=== PATIENT | male | born 1985 | race Hispanic/Latino ===

== ENCOUNTER 2025-01-08 13:36 | Emergency (ER) | payer SELFPAY ==
[~2025-01-08] VITALS: Ht 167.6 cm; Wt 102.1 kg
[2025-01-08] MEDS: FLUORESCEIN SODIUM 1 STRIP STRIP OP SCH (14:00)
[2025-01-08] MEDS: TETRACAINE HCL 0.5% 4 ML OPHTH SOLN ONE (14:03)
[2025-01-08] MEDS: FLUORESCEIN SODIUM 1 STRIP STRIP ONE (14:03)
[2025-01-08] MEDS ORDERED: POLYOS OP (14:42)
[2025-01-08] MEDS ORDERED: KETO-108 OP (14:42)
--- NOTE | 2025-01-08 14:44 | ERN ---
General Chief Complaint: Eye Problems Stated Complaint: LEFT EYE PAIN Time Seen by MD: 13:37 History of Present Illness Initial Comments Otherwise healthy 39-year-old male who presents for left eye injury. Yesterday he accidentally hit the eye with a pole. He reports that he closed his eyelid and he was hit in the outside of the eye. Today he feels swelling to the side of the face and he feels a sensation of a foreign body in his left eye. He does not wear contacts. Allergies: Coded Allergies: No Known Drug Allergies (Unverified Allergy, Unknown, 01/08/25) Past Medical History Past Medical History: No Pertinent History Past Surgical History: Other Surgical History Other: BACK SURGERY ROS Dictation CONSTITUTIONAL: No chills, no fever, no weakness, no diaphoresis, no malaise. HEAD/FACE: No signs of trauma. EENT: Left eye pain RESPIRATORY: No cough, no orthopnea, no SOB, no stridor, no wheezing. CARDIOVASCULAR: No chest pain, no edema, no palpitations, no syncope. GASTROINTESTINAL/ABDOMINAL: No abdominal pain, no constipation, no diarrhea, no nausea, no vomiting. GENITOURINARY: No abnormal discharge, no dysuria, no frequent urination, no hematuria. No complaints of pain in the genitals. MUSCULOSKELETAL: No back pain, no gout, no joint pain, no joint swelling, no muscle pain, no muscle stiffness, no neck pain. INTEGUMENTARY: No change in color, no change in hair/nails, no dryness, no lesion, no lumps, no rash. NEUROLOGICAL/PSYCH: No anxiety, not depressed, no emotional problem, no headache, no numbness, no pre-existing deficit, no history of seizures, no tremors, no weakness. HEMATOLOGIC/LYMPHATIC: Not anemic, no history of blood clots, no apparent bleeding, no bruising, glands not swollen. All Systems Negative, Except as Noted. Physical Exam Physical Exam Dictation VITAL SIGNS: Reviewed. GENERAL APPEARANCE: Alert, oriented x3, no acute distress, obese. HEAD AND FACE: Non-traumatic. EARS: Pinnas intact and no signs of trauma or erythema. Ear canals clear and no discharge. TMs no erythema. NOSE: No discharge, no bleeding. OROPHARYNX: Mouth normal, teeth no caries, tongue pink. Pharynx clear, no erythema. Tonsils no exudates, no abscesses noted. Mucous membrane moist. NECK: Supple, non-tender, no thyromegaly, no masses, no JVD, no bruits. BREAST: Deferred. CHEST: No tenderness, no crepitus, no paradoxical movement, no retractions. LUNGS: Clear, well-ventilated, symmetric, no rales, no wheezing, no rhonchi, no stridor, good breath sounds bilaterally. HEART: Regular rate, regular rhythm, no murmur, no gallops. VASCULAR: No peripheral edema. ABDOMEN: Soft, positive bowel sounds, nondistended, no guarding, nontender, no rebound, no masses no hepatomegaly, no splenomegaly, no Newton's sign, no hernias. RECTAL: Deferred. GENITAL: Deferred. NEUROLOGICAL: Normal speech, gross motor function intact, gross sensory function intact. MUSCULOSKELETAL: Neck nontender, full range of motion, back nontender, full range of motion. EXTREMITIES: Nontender, full range of motion. SKIN: Color pink, dry, no turgor, no rash, no lacerations, no abrasions, no contusions. LYMPHATICS: Deferred. MDM CC: Banged to the eye, left eye pain meals started Historian: Patient No comorbidities No limitations Differential diagnosis: Corneal abrasion versus other versus foreign body Vitals are stable CRUZ, EOMI. He was have some corneal injection. On staining exam patient has a very minimal corneal abrasion in the center of the eye without Suleman sign no foreign bodies We will DC with eye drops recommend follow up ED Course Orders Procedure Category Date Status Time Fluorescein Sodium PHA 01/08/25 Complete (Tyaxb-O-Iltsy At) 13:48 Tetracaine Hcl PHA 01/08/25 Complete (Pontocaine 0.5% 13:49 Fluorescein Sodium PHA 01/08/25 In Process (Dhczf-R-Cxxoe At) 14:00 Current Medications Medications (Trade) Dose Ordered Sig/Leonardo Route PRN Reason Start Time Stop Time Status Last Admin Dose Admin Fluorescein Sodium (Xdymq-J-Bhqta At) 1 strip ONCE OP 01/08/25 14:00 02/07/25 13:59 Fluorescein Sodium (Nfpda-S-Mqrsg At) 1 strip STK-MED ONCE .ROUTE 01/08/25 13:48 01/08/25 13:49 DC 01/08/25 14:03 Tetracaine HCl (Pontocaine 0.5% Ophth Soln) 20 drop STK-MED ONCE .ROUTE 01/08/25 13:49 01/08/25 13:49 DC 01/08/25 14:03 Vital Signs Date Time Temp Pulse Resp B/P (MAP) Pulse Ox O2 Delivery O2 Flow Rate FiO2 01/08/25 13:37 98.2 83 18 169/92 98 Room Air DX & DISP Disposition: Discharge Departure Impression: Primary Impression: Corneal abrasion Condition: Stable Scripts Polymyxin B Sulfate/Tmp (Polytrim Ophth Soln) 10,000 Unit-1 Mg/Ml Opsol 1 DROP OP TID for 7 Days, #10 ML 0 Refills Prov: JESSICA CHRISTIE DO 01/08/25 Ketorolac Tromethamine (Ketorolac Tromethamine) 0.5 % Drops 1 DROP OP QID for pain, #5 ML 0 Refills Prov: JESSICA CHRISTIE DO 01/08/25 Additional Instructions: There are no foreign bodies in your eye on clinical exam. It appears to be a very small corneal abrasion and swelling. This can be painful but usually heals on its own. I have prescribed Polytrim eyedrops. Use one drop in the affected eye every 6 hours. I have prescribed ketorolac eye drops. Apply one drop in the affected eye every 6 hours as needed for pain. You can take owmx-oam-sslcztn ibuprofen (800 mg) or Tylenol (1000 mg) as needed for pain. Do not rub your eye. Do not wear contact lenses. Wear sunglasses as needed. As we discussed, usually symptoms improve in the next 24-48 hours. I recommend you schedule an appointment with the an eye doctor within 48 hours. This will make sure that he abrasion in his healing properly. Please return to the emergency department if you have any concerns. Referrals: SELF,REFERRAL (PCP) JESSICA CHRISTIE DO Jan 08, 2025 14:44
[2025-01-08 14:47] VITALS: BP 161/87; PULSE 80; RESP 18; TEMP 98.2; O2SAT 98
== END 2025-01-08 14:55 | disposition home or self-care (01) ==
LOC: EDH 13:36
DX: S05.00XA Injury of conjunctiva and corneal abrasion without foreign body, unspecified eye, initial encounter (principal); W22.09XA Striking against other stationary object, initial encounter; Y93.89 Activity, other specified; Y92.89 Other specified places as the place of occurrence of the external cause; Y99.8 Other external cause status
CPT/HCPCS: 99283

== ENCOUNTER 2025-04-19 14:02 | Emergency (ER) | payer SELFPAY ==
[~2025-04-19] VITALS: Ht 170.2 cm; Wt 104.3 kg
[~2025-04-19 14:02] MED LIST: KETO-108 OP; POLYOS OP
--- NOTE | 2025-04-19 14:11 | ERN ---
ED Note History of Present Illness Stated Complaint: SORE THROAT/ EAR PAIN Chief Complaint: Sore Throat Time Seen by MD: 14:04 Dictation: IS A 39-YEAR-OLD MALE COMING IN TODAY WITH COMPLAINTS OF SORE THROAT WITH PAINFUL SWALLOWING HE HAS HAD FOR SEVERAL DAYS. HE ALSO STATES WHEN HE CHEWS IT HURTS TO HIS LEFT EAR. NO FEVER NO CHILLS NO NAUSEA VOMITING. ADDITIONALLY PATIENT IS NOTED TO BE HYPERTENSIVE IN THE TRIAGE WITH BLOOD PRESSURE 199/103. HE STATES HE WAS SEEN BY A DOCTOR IN [place] SEVERAL DAYS AGO AND WE WILL PRESCRI BED AMOXICILLIN AFTER BEING DIAGNOSED WITH A CYST HE SAID THE PAIN HAS NOT GOTTEN ANY BETTER AND HE IS HERE FOR FURTHER EVALUATION AND TREATMENT. VOICE IS CLEAR Allergies: Coded Allergies: No Known Drug Allergies (Unverified Allergy, Unknown, 01/08/25) Home Meds Active Scripts Polymyxin B Sulfate/Tmp (Polytrim Ophth Soln) 10,000 Unit-1 Mg/Ml Opsol, 1 DROP OP TID for 7 Days, #10 ML 0 Refills Prov:JESSICA CHRISTIE DO 01/08/25 Ketorolac Tromethamine (Ketorolac Tromethamine) 0.5 % Drops, 1 DROP OP QID for pain, #5 ML 0 Refills Prov:JESSICA CHRISTIE DO 01/08/25 Past Medical History Past Medical History: No Pertinent History Surgical History: Other Surgical History Other: BACK SURGERY Social History: Smokers RN Note Reviewed/Agreed w/PFSH: Yes Review of System Dictation CONSTITUTIONAL: NEGATIVE EXCEPT FOR HPI HEAD/FACE: NEGATIVE EXCEPT FOR HPI EENT: NEGATIVE EXCEPT FOR HPI SORE THROAT WITH LEFT EAR PAIN CHEWING RESPIRATORY: NEGATIVE EXCEPT FOR HPI GASTROINTESTINAL/ABDOMINAL: NEGATIVE EXCEPT FOR HPI GENITOURINARY: NEGATIVE EXCEPT FOR HPI MUSCULOSKELETAL: NEGATIVE EXCEPT FOR HPI INTEGUMENTARY: NEGATIVE EXCEPT FOR HPI NEUROLOGICAL/PSYCH: NEGATIVE EXCEPT FOR HPI HEMATOLOGIC/LYMPHATIC: NEGATIVE EXCEPT FOR HPI ALL SYSTEMS NEGATIVE, EXCEPT NOTED ABOVE. 13 POINT REVIEW OF SYSTEMS ASSESSED AND ALL NEGATIVE EXCEPT FOR ABOVE. Initial Vital Sign VS Vital Signs Date Time Temp Pulse Resp B/P (MAP) Pulse Ox O2 Delivery O2 Flow Rate FiO2 04/19/25 14:05 98.2 111 20 199/103 99 Room Air 0 04/19/25 14:10 21 Physical Exam Dictation VITAL SIGNS REVIEWED GENERAL APPEARANCE: ALERT, ORIENTED X 3, MILD ACUTE DISTRESS, WELL DEVELOPED, NOURISHED. MORBID OBESITY HEAD AND FACE: NON-TRAUMATIC. EYES: PERRL, PINK CONJUNCTIVAS, EYELID NO TRAUMA, ANTERIOR CHAMBER WITH ARCUS SENILIS. EARS: PINNAS INTACT AND NO SIGNS OF TRAUMA OR NO MASTOID TENDERNESS BILATERALLY. UNABLE TO VISUALIZE LEFT TM DUE TO CERUMEN IMPACTIONS NOSE: NO DISCHARGE, NO BLEEDING. OROPHARYNX: MOUTH NORMAL, TONSILS 2/4 BILATERALLY AND CRYPTIC., NO ABSCESSES NOTED, MUCOUS MEMBRANE MOIST UVULA MIDLINE AND VOICE IS CLEAR NECK: SUPPLE, NON-TENDER, NO THYROMEGALY, NO MASSES, NO JVD, NO BRUITS BREAST:DEFERRED CHEST:NO TENDERNESS, NO CREPITUS, NO PARADOXICAL MOVEMENT, NO RETRACTIONS LUNGS:CLEAR, WELL-VENTILATED, SYMMETRIC, NO RALES, NO WHEEZING, NO RHONCHI, NO STRIDOR, GOOD BREATH SOUNDS BILATERALLY HEART: REGULAR RATE, REGULAR RHYTHM, NO MURMUR, NO GALLOPS VASCULAR: NO PERIPHERAL EDEMA, ABDOMEN: SOFT, POSITIVE BOWEL SOUNDS, NONDISTENDED, NO GUARDING, NONTENDER, NO REBOUND, NO MASSES NO HEPATOMEGALY, NO SPLENOMEGALY, NO BERRIOS'S SIGN, NO HERNIAS. RECTAL: DEFERRED GENITAL: DEFERRED NEUROLOGICAL: NORMAL SPEECH, MOTOR FUNCTION INTACT, SENSORY FUNCTION INTACT MUSCULOSKELETAL: NECK NONTENDER, FULL RANGE OF MOTION, BACK NONTENDER, FULL RANGE OF MOTION, EXTREMITIES: NONTENDER, FULL RANGE OF MOTION SKIN: COLOR PINK, DRY, NO TURGOR, NO RASH, NO LACERATIONS, NO ABRASIONS, NO CONTUSIONS. LYMPHATIC: DEFERRED Results (Laboratory/Radiology) Laboratory/Radiology Laboratory Tests Test 04/19/25 14:08 Group A Streptococcus Rapid positive (NEGATIVE) *A Labs Reviewed?: Yes ED Course ED Course Orders Procedure Category Date Status Time Rapid (Group A Strep) LAB 04/19/25 Complete 14:07 Clonidine Hcl 0.2 Mg PHA 04/19/25 Complete Tablet (Catapres 0. 14:30 Dexamethasone 4mg/Ml PHA 04/19/25 Complete 1ml Vial (Dexametha 14:30 Acetaminophen 500mg PHA 04/19/25 Complete Tab (Tylenol 500mg T 15:00 Current Medications Medications (Trade) Dose Ordered Sig/Leonardo Route PRN Reason Start Time Stop Time Status Last Admin Dose Admin Acetaminophen (TYLenol 500MG TAB) 1,000 mg ONCE ONCE PO 04/19/25 15:00 04/19/25 15:01 DC 04/19/25 14:57 Clonidine HCl (CATApres 0.2 MG TAB) 0.2 mg ONCE ONCE PO 04/19/25 14:30 04/19/25 14:31 DC 04/19/25 14:17 Dexamethasone Sodium Phosphate (dexaMETHasone 4MG/ML 1ML VIAL) 8 mg ONCE ONCE IM 04/19/25 14:30 04/19/25 14:31 DC 04/19/25 14:57 Vital Signs Date Time Temp Pulse Resp B/P (MAP) Pulse Ox O2 Delivery O2 Flow Rate FiO2 04/19/25 15:10 98.2 97 18 145/91 98 Room Air* 0 21 04/19/25 14:17 111 199/103 04/19/25 14:10 98.2 111 20 199/103 99 Room Air* 0 21 04/19/25 14:05 98.2 111 20 199/103 99 Room Air 0 1515/REPEAT BLOOD PRESSURE AFTER CLONIDINE 145/91. PATIENT WILL BE DISCHARGED HOME WITH CLONIDINE 0.2 B.I.D. PRESCRIBED AUGMENTIN 875 B.I.D. FOR 10 DAYS GIVEN A LIST OF PRIMARY CARE DOCTORS FOR FOLLOW UP STRONGLY RECOMMENDED HIM TO SEE A DOCTOR FOR HIS BLOOD PRESSURE CONTROL OR RISK ACUTE MYOCARDIAL INFARCTION OR STROKE Medical Decision Making MDM MEDICAL DECISION-MAKING BASED ON HPI AND STREP SWAB STREP SWAB WAS POSITIVE PATIENT ALSO NOTED TO HAVE HYPERTENSION AND WAS TREATED WITH CLONIDINE REPEAT BLOOD PRESSURE MARKEDLY IMPROVED PATIENT DISCHARGED HOME WITH A LIST OF DOCTORS DX & DISP Disposition: Discharge Departure Impression: Primary Impression: Acute streptococcal tonsillitis Additional Impressions: Uncontrolled hypertension, Obesity Condition: Stable Scripts Amoxicillin/Potassium Clav (Amox Tr-K Clv 875-125 mg Tab) 875 Mg-125 Mg Tablet 1 EACH PO BID for 10 Days, #20 TAB 0 Refills Prov: ERNIE LOERAP 04/19/25 Clonidine HCl (Clonidine HCl) 0.2 Mg Tablet 1 TAB PO BID for 30 Days, #60 TAB 0 Refills Prov: ERNIE LOERA ATOMIZER ASSEMBLER 04/19/25 Additional Instructions: FOLLOW-UP WITH PRIMARY CARE PROVIDER IN 1 TO 2 DAYS. TAKE MEDICATIONS DIRECTED HERE IN THE EMERGENCY ROOM. OKAY TO CONTINUE HOME MEDICATIONS UNLESS OTHERWISE DISCUSSED DURING YOUR VISIT IN THE EMERGENCY ROOM TODAY. RETURN TO YOUR NEAREST EMERGENCY ROOM IF SYMPTOMS WORSEN OR IF THERE IS NO IMPROVEMENT. CALL 911 IF YOU NEED IMMEDIATE ASSISTANCE. TAKE TYLENOL OR MOTRIN [id number] NEEDED AND IF NO CONTRAINDICATIONS ARE PRESENT. INCREASE ORAL HYDRATION. A WOUND CULTURE OR URINE CULTURE WAS ORDERED HERE IN THE EMERGENCY ROOM DEPARTMENT PLEASE FOLLOW-UP WITH PRIMARY CARE PROVIDER AND ADVISE THEM TO GET REPEAT PORTS FROM OUR FACILITY. IF YOU HAD ANY ARIN WRAP/SPLINTS THAT WERE APPLIED HERE, PLEASE DO NOT REMOVE THEM UNTIL YOU SEE YOUR PRIMARY CARE OR SPECIALTY. TAKE CLONIDINE TWICE A DAY DIRECTED FOR YOUR BLOOD PRESSURE. TAKE AUGMENTIN DIRECTED TWICE A DAY UNTIL GONE. STRONGLY SUGGEST FINDING A PRIMARY CARE DOCTOR IN FOLLOWING UP FOR CONTROL OF YOUR BLOOD PRESSURE OR RISK KIDNEY DISEASE, HEART ATTACK OR STROKE. Referrals: SELF,REFERRAL (PCP) Time of Disposition: 15:16 I have reviewed the case, and I agree with, Diagnosis and Plan ERNIE LOERA Apr 19, 2025 14:11
[2025-04-19 15:10] VITALS: BP 145/91; PULSE 97; RESP 18; TEMP 98.2; O2SAT 98
--- NOTE | 2025-04-19 15:15 | NUR ---
PT AAOX4 STABLE NO DISTRESS , PT GIVEN BLOOD PRESSURE MEDICATION, PRESSURE IMPROVED. PT GIVEN INSTRUCTIONS FOR HOME, RX SENT TO PT PHARMACY WILL START TODAY. PT WALKED OUT TO ED LOBBY DROVE HIMSELF HOME.
[2025-04-19] MEDS ORDERED: AMOX1TAB16 PO (15:17)
[2025-04-19] MEDS ORDERED: CLON0.2T PO (15:17)
== END 2025-04-19 15:35 | disposition home or self-care (01) ==
LOC: EDH 14:02
DX: J03.00 Acute streptococcal tonsillitis, unspecified (principal); I10 Essential (primary) hypertension; E66.9 Obesity, unspecified; F17.200 Nicotine dependence, unspecified, uncomplicated; Z79.899 Other long term (current) drug therapy; Z98.890 Other specified postprocedural states
CPT/HCPCS: 99283; 87880; 96372; J1100